=== PATIENT | male | born 1955 | race Caucasian/White ===

== ENCOUNTER 2022-09-16 11:08 | Day surgery (SDC) | payer OTHER ==
[2022-09-13 13:14] LABS: BASOPHILS # (AUTO) 0.1 X10'3 (0-0.2); EOSINOPHILS # (AUTO) 0.2 X10'3 (0-0.9); EOSINOPHILS % (AUTO) 2.8 % (0-6); HEMATOCRIT 45.8 % (42.0-52.0); HEMOGLOBIN 15.8 g/dl (14.0-17.9); LYMPHOCYTES % (AUTO) 37.6 % (21-51); MEAN CORPUSCULAR HEMOGLOBIN 32.5 PG (27.0-31.0); MEAN CORPUSCULAR HGB CONC 34.5 g/dL (33.0-36.5); MEAN CORPUSCULAR VOLUME 94.3 FL (78-98); MEAN PLATELET VOLUME 7.9 FL (7.4-10.4); MONOCYTES # (AUTO) 0.6 X10'3 (0-0.9); MONOCYTES % (AUTO) 7.1 % (2-12); NEUTROPHILS # (AUTO) 4.1 X10'3 (1.8-7.7); NEUTROPHILS % (AUTO) 51.5 % (42-75); PLATELET COUNT 263 X10'3 (140-440); RED BLOOD COUNT 4.86 X10'6 (4.70-6.10)
[2022-09-13 13:29] LABS: APTT 31 SECONDS (22-32)
[2022-09-13 13:31] LABS: ALBUMIN 4.2 G/DL (3.4-5.0); ANION GAP 6 (8-16); BLOOD UREA NITROGEN 16 MG/DL (7-18); BUN/CREATININE RATIO 17.2 (10.0-20.0); CALCIUM 9.7 MG/DL (8.5-10.1); CHLORIDE 105 MMOL/L (99-107); CHOL/HDL RATIO 3.7 (0.00-4.99); CHOLESTEROL 157 MG/DL (0-200); CREATININE 0.93 MG/DL (0.60-1.10); GLUCOSE 111 MG/DL (70-104); HDL CHOLESTEROL 42 MG/DL (35-60); LDL CHOLESTEROL 91 MG/DL (50-100); POTASSIUM 4.3 MMOL/L (3.5-5.1); SODIUM 139 MMOL/L (135-145); TOTAL CARBON DIOXIDE 28.2 MMOL/L (24-32); TRIGLYCERIDES 162 MG/DL (20-135); eGFR 81 ML/MIN
[2022-09-16] VITALS (9 sets, daily range): BP systolic 136–157; BP diastolic 80–104
[~2022-09-16] VITALS: Ht 170.2 cm; Wt 91.1 kg
[~2022-09-16 11:08] MED LIST: ALLO100T PO; ASPI-1264 PO; BAC10T PO; ISOS60TA71 PO; LEVO100T46 PO; LOP25T PO; LORA-512 PO; NOR5T PO; [UNRECOGNIZED DRUG - CODE] PO
[2022-09-16] MEDS ORDERED: diphenhydrAMINE 25mg capsule PO PRN (11:30)
[2022-09-16] MEDS ORDERED: normal saline 1,000 ML IV SCH (11:30)
[2022-09-16] MEDS ORDERED: LORazepam 0.5 MG tablet PO PRN (11:30)
[2022-09-16] MEDS ORDERED: ASPI81TA52 PO (11:44)
[2022-09-16] MEDS ORDERED: CHOL20002 PO (11:48)
[2022-09-16] MEDS ORDERED: ATOR10TA PO (11:48)
[2022-09-16] MEDS ORDERED: iohexol 350MG/ML 100ml bottle IV ONE (14:17)
[2022-09-16] MEDS ORDERED: midazolam 1 mg/ML 2ml injection ONE (14:17)
[2022-09-16] MEDS ORDERED: heparin 1,000unit/ml 10ml vial 10 ML ONE (14:17)
[2022-09-16] MEDS ORDERED: LIDOcaine 1% (10mg/ml) 2ml vial ONE (14:17)
[2022-09-16] MEDS ORDERED: fentaNYL/PF 50MCG/1 ML 2ML syringe ONE (14:17)
[2022-09-16] MEDS ORDERED: verapamil 2.5 mg/ml inj IV ONE (14:17)
[2022-09-16] MEDS ORDERED: nitroGLYCERIN-Tridil 50MG/D5W 250 ML IV ONE (14:18)
[2022-09-16] MEDS ORDERED: HYDROcodone/acetaminophen 10/325mg tab PO PRN (15:40)
[2022-09-16] MEDS ORDERED: HYDROcodone/acetaminophen 5mg/325mg tablet PO PRN (15:40)
== END 2022-09-16 18:15 | disposition home or self-care (01) ==
LOC: SSTAY O 11:08
PROVIDERS: ATTEND Student in an Organized Health Care Education/Training Program
DX: R94.39 Abnormal result of other cardiovascular function study (principal); I25.10 Atherosclerotic heart disease of native coronary artery without angina pectoris; I25.82 Chronic total occlusion of coronary artery; E78.5 Hyperlipidemia, unspecified; I10 Essential (primary) hypertension; Z79.01 Long term (current) use of anticoagulants; Z79.899 Other long term (current) drug therapy; J44.9 Chronic obstructive pulmonary disease, unspecified; E03.9 Hypothyroidism, unspecified; M10.9 Gout, unspecified; Z88.0 Allergy status to penicillin; Z88.8 Allergy status to other drugs, medicaments and biological substances
CPT/HCPCS: 36415; 80048; 80061; 85025; 85610; 85730; 93005; 93458; 99152; A6258; C1894; J1644; J2250; J3010; J3490; J7030; Q0163; Q9967; A6402